=== PATIENT | male | born 1965 | race Caucasian/White ===

== ENCOUNTER 2017-04-29 23:45 | Emergency (ER) | payer SELFPAY ==
[~2017-04-29] VITALS: Ht 167.6 cm; Wt 96.0 kg
[2017-04-30] MEDS ORDERED: SODIUM CHLORIDE 0.9% 1,000 ML IV ONE (06:52)
[2017-04-30] MEDS ORDERED: ONDANSETRON HCL 4MG/2ML VIAL IV STA (06:52)
[2017-04-30] MEDS ORDERED: KETOROLAC 30MG/ML VIAL IV STA (06:52)
[2017-04-30 07:38] LABS: BASOPHILS % 0.9 % (0.0-2.0); EOSINOPHILS % 4.3 % (0.0-5.0); HEMATOCRIT. 42.3 % (42.0-52.0); HEMOGLOBIN. 14.3 g/dL (14.0-18.0); LYMPHOCYTES % 39.9 % (20.0-50.0); MEAN CORPUSCULAR HEMOGLOBIN 31.1 pg (28.0-32.0); MEAN CORPUSCULAR VOLUME 92.3 fL (80.0-94.0); MEAN PLATELET VOLUME 9.4 fl (7.4-10.4); MONOCYTES % 7.5 % (2.0-8.0); NEUTROPHILS % 47.4 % (40.0-76.0); PLATELET 185 x1000/uL (130-400); RED BLOOD CELL COUNT 4.58 mill/uL (4.7-6.1)
[2017-04-30 07:42] LABS: CLARITY URINE CLEAR (CLEAR); COLOR URINE YELLOW (YELLOW); KETONES URINE NEGATIVE (NEGATIVE); LEUKOCYTE ESTERASE URINE NEGATIVE (NEGATIVE); NITRITE URINE NEGATIVE (NEGATIVE); OCCULT BLOOD URINE NEGATIVE (NEGATIVE); PH URINE 5.5 (4.5-8.0); PROTEIN URINE NEGATIVE (NEGATIVE); UROBILINOGEN URINE 0.2 E.U./dL (0.2-1.0)
[2017-04-30 07:46] LABS: CHLORIDE 108 mEq/L (98-107); ETHANOL BLOOD < 10 mg/dL
[2017-04-30 10:28] VITALS: BP 114/78
== END 2017-04-30 11:00 | disposition home or self-care (01) ==
LOC: ER 23:45
DX: K59.00 Constipation, unspecified (principal); Z98.1 Arthrodesis status
CPT/HCPCS: 36415; 80053; 81003; 83690; 85025; 96361; 96374; 96375; 99284; G0482; J1885; J2405; J7030; Z7610

== ENCOUNTER 2017-12-27 15:24 | Inpatient (IN) | payer SELFPAY ==
[~2017-12-27] VITALS: Ht 175.3 cm; Wt 94.3 kg
[2017-12-27] MEDS ORDERED: ONDANSETRON HCL 4MG/2ML INJ IV STA (16:16)
[2017-12-27] MEDS ORDERED: SODIUM CHLORIDE 0.9% 1,000 ML IV ONE (16:16)
[2017-12-27] MEDS ORDERED: PANTOPRAZOLE SODIUM 40 MG/VIAL IV ONE (16:30)
[2017-12-27 16:58] LABS: EOSINOPHILS % 3.7 % (0.0-5.0); HEMOGLOBIN. 14.5 g/dL (14.0-18.0); LYMPHOCYTES % 40.3 % (20.0-50.0); MEAN CORPUSCULAR HEMOGLOBIN 31.7 pg (28.0-32.0); MEAN CORPUSCULAR VOLUME 91.9 fL (80.0-94.0); MEAN PLATELET VOLUME 9.2 fl (7.4-10.4); PLATELET 189 x1000/uL (130-400); RED BLOOD CELL COUNT 4.57 mill/uL (4.7-6.1); RED CELL DISTRIBUTION WIDTH 13.4 % (11.6-14.6)
[2017-12-27 17:03] LABS: PARTIAL THROMBOPLASTIN TIME 26.8 sec (23.4-31.0); PROTHROMBIN TIME 10.3 sec (9.1-11.1)
[2017-12-27 17:06] LABS: CHLORIDE 108 mEq/L (98-107)
[2017-12-27 17:11] LABS: BG BASE EXCESS 1.8 mmol/L (-2.0-2.0); BG CARBOXYHEMOGLOBIN 0.6 % (0.5-1.5); BG DEOXYHEMOGLOBIN 2.5 % (0.0-5.0); BG FRACTION INSPIRED OXYGEN 21; BG HCO3 ACT 25.8 mmol/L (22.0-26.0); BG METHEMOGLOBIN 0.4 % (0.0-1.5); BG OXYGEN SATURATION 97.5 % (92.0-98.5); BG OXYHEMOGLOBIN 96.5 % (94.0-97.0); BG PCO2 38.3 mmHg (35.0-45.0); BG PH 7.446 (7.350-7.450); BG PO2 97.9 mmHg (75.0-100.0); BG SAMPLE SITE RIGHT BRACHIAL; BG TOTAL HEMOGLOBIN 15.1 g/dL (12.0-18.0); BG VENT MODE ROOM AIR
[2017-12-27 17:13] LABS: ETHANOL BLOOD < 10 mg/dL; TOTAL IRON BINDING CAPACITY 285 ug/dL (250-450)
[2017-12-27] MEDS ORDERED: MORPHINE SULFATE 4 MG/ML CPJ (NOT FOR IM USE) IV ONE (17:15)
[2017-12-27 22:00] VITALS: BP 141/78
[2017-12-27] MEDS ORDERED: INFLUENZA VIRUS VACCINE(AFLURIA) 0.5ML SYR IM ONE (22:15)
[2017-12-27] MEDS ORDERED: ZOLP10TA2 MT (22:48)
[2017-12-27] MEDS ORDERED: OMEP20CA10 MT (22:49)
[2017-12-27] MEDS ORDERED: HYDR-4001 MT (22:51)
[2017-12-27 22:52] VITALS: BP 141/78
[2017-12-28] VITALS: BP 109/71
[2017-12-28] MEDS ORDERED: ZOLPIDEM TARTRATE 5MG TABLET PO PRN (02:30)
[2017-12-28] MEDS ORDERED: ACETAMINOPHEN 325MG TABLET PO PRN (02:30)
[2017-12-28] MEDS ORDERED: HYDROCODONE/ACETAMINOPHEN 5/325MG TABLET PO PRN (02:30)
[2017-12-28 04:00] VITALS: BP_SYST 108; BP_SYST 127; BP_DIAS 84
[2017-12-28] MEDS: SODIUM CHL 0.45% + KCL 20MEQ/L 1,000 ML IV SCH (04:47)
[2017-12-28 06:04] LABS: BASOPHILS % 0.9 % (0.0-2.0); EOSINOPHILS % 4.3 % (0.0-5.0); HEMATOCRIT. 41.6 % (42.0-52.0); HEMOGLOBIN. 14.2 g/dL (14.0-18.0); LYMPHOCYTES % 42.4 % (20.0-50.0); MEAN CORPUSCULAR HEMOGLOBIN 31.8 pg (28.0-32.0); MEAN CORPUSCULAR VOLUME 93.3 fL (80.0-94.0); MEAN PLATELET VOLUME 9.7 fl (7.4-10.4); NEUTROPHILS % 45.4 % (40.0-76.0); PLATELET 174 x1000/uL (130-400); RED BLOOD CELL COUNT 4.46 mill/uL (4.7-6.1); RED CELL DISTRIBUTION WIDTH 13.1 % (11.6-14.6)
[2017-12-28 06:28] LABS: CHLORIDE 109 mEq/L (98-107)
[2017-12-28 06:36] LABS: TOTAL IRON BINDING CAPACITY 304 ug/dL (250-450)
[2017-12-28] MEDS ORDERED: PANTOPRAZOLE SODIUM 40 MG/VIAL IV SCH (09:00)
[2017-12-28] MEDS ORDERED: DOCUSATE SODIUM 250MG CAPSULE PO SCH (09:00)
[2017-12-28 20:00] VITALS: BP 160/89
[2017-12-28 22:23] LABS: *AMPHETAMINES SCREEN URINE NEGATIVE (NEGATIVE); *BARBITURATES SCREEN URINE NEGATIVE (NEGATIVE); *BENZODIAZEPINES SCREEN URINE NEGATIVE (NEGATIVE)
[2017-12-28 22:24] LABS: *COCAINE SCREEN URINE NEGATIVE (NEGATIVE); CANNABINOID URINE SCREEN NEGATIVE (NEGATIVE); METHADONE URINE SCREEN NEGATIVE (NEGATIVE); OPIATES URINE SCREEN PRESUMTIVE POSITIVE (NEGATIVE); PHENCYCLIDINE URINE SCREEN NEGATIVE (NEGATIVE)
[2017-12-29] VITALS: BP 107/63
[2017-12-29] MEDS: SODIUM CHL 0.45% + KCL 20MEQ/L 1,000 ML IV SCH (03:14)
[2017-12-29 04:00] VITALS: BP 118/75
[2017-12-29 07:13] LABS: BASOPHILS % 0.7 % (0.0-2.0); EOSINOPHILS % 3.6 % (0.0-5.0); HEMATOCRIT. 44.5 % (42.0-52.0); HEMOGLOBIN. 15.1 g/dL (14.0-18.0); MEAN CORPUSCULAR HEMOGLOBIN 31.6 pg (28.0-32.0); MEAN CORPUSCULAR VOLUME 92.9 fL (80.0-94.0); MEAN PLATELET VOLUME 9.5 fl (7.4-10.4); NEUTROPHILS % 53.7 % (40.0-76.0); PLATELET 182 x1000/uL (130-400); RED BLOOD CELL COUNT 4.79 mill/uL (4.7-6.1); RED CELL DISTRIBUTION WIDTH 12.8 % (11.6-14.6)
[2017-12-29 08:00] VITALS: BP 128/77
[2017-12-29 08:05] LABS: CHLORIDE 109 mEq/L (98-107)
[2017-12-29 11:17] VITALS: BP 123/88
[2017-12-29 12:11] LABS: HEPATITIS B SURFACE ANTIGEN NEGATIVE
[2017-12-29 12:39] LABS: HEPATITIS B CORE AB IGM NEGATIVE
[2017-12-29 12:40] LABS: HEPATITIS A AB IGM NEGATIVE (NEGATIVE)
== END 2017-12-29 12:47 | disposition home or self-care (01) | DRG 253 ==
LOC: ER 15:24 → 6EST 17:21 → EDBEDREQ 17:24 → EDBEDREQSVC 17:24 → EDBEDREQTM 17:24 → ENRESERV 21:06
PROVIDERS: ADMIT Internal Medicine Geriatric Medicine; ATTEND Internal Medicine Geriatric Medicine
DX: K62.5 Hemorrhage of anus and rectum (principal); G89.29 Other chronic pain; I10 Essential (primary) hypertension; K59.00 Constipation, unspecified; R74.0 Nonspecific elevation of levels of transaminase and lactic acid dehydrogenase [LDH]; M54.9 Dorsalgia, unspecified; Z79.1 Long term (current) use of non-steroidal anti-inflammatories (NSAID); Z87.11 Personal history of peptic ulcer disease; Z88.6 Allergy status to analgesic agent
CPT/HCPCS: 36415; 36600; 71045; 74176; 76700; 80048; 80305; 82375; 82805; 83540; 83550; 83880; 84484; 85044; 86705; 86709; 86803; 86850; 86900; 87340; 93005; 93970; 96361; 96374; 96375; 99285; C9113; G0482; J2270; J2405; J3480; J7030

== ENCOUNTER 2018-01-27 14:26 | Emergency (ER) | payer SELFPAY ==
[~2018-01-27] VITALS: Ht 170.2 cm; Wt 94.5 kg
[~2018-01-27 14:26] MED LIST: HYDR-4001 MT; OMEP20CA10 MT; ZOLP10TA2 MT
[2018-01-27] MEDS ORDERED: RANITIDINE (14:48)
[2018-01-27] MEDS ORDERED: PANTOPRAZOLE SODIUM 40 MG/VIAL IV STA (16:21)
[2018-01-27] MEDS ORDERED: SODIUM CHLORIDE 0.9% 1,000 ML IV ONE (16:45)
[2018-01-27] MEDS ORDERED: ONDANSETRON HCL 4MG/2ML INJ IV ONE (16:45)
[2018-01-27 17:17] LABS: BASOPHILS % 0.7 % (0.0-2.0); HEMATOCRIT. 44.2 % (42.0-52.0); HEMOGLOBIN. 14.9 g/dL (14.0-18.0); LYMPHOCYTES % 40.2 % (20.0-50.0); MEAN CORPUSCULAR HEMOGLOBIN 31.9 pg (28.0-32.0); MEAN CORPUSCULAR VOLUME 94.3 fL (80.0-94.0); MEAN PLATELET VOLUME 10.1 fl (7.4-10.4); MONOCYTES % 7.1 % (2.0-8.0); PLATELET 185 x1000/uL (130-400); RED BLOOD CELL COUNT 4.68 mill/uL (4.7-6.1); RED CELL DISTRIBUTION WIDTH 13.3 % (11.6-14.6)
[2018-01-27 17:23] LABS: CHLORIDE 107 mEq/L (98-107)
[2018-01-27 17:41] LABS: PROTHROMBIN TIME 10.3 sec (9.1-11.1)
[2018-01-27] MEDS ORDERED: MAGNESIUM/ALUMINUM HYDROXIDE/SIMETHICONE 30ML UDC PO STA (20:40)
[2018-01-27] MEDS ORDERED: ONDANSETRON HCL 4MG/2ML INJ IV STA (20:40)
[2018-01-27] MEDS ORDERED: FENTANYL CITRATE/PF 50MCG/ML 2ML VIAL IV ONE (20:45)
[2018-01-27 21:30] VITALS: BP 119/55
== END 2018-01-27 21:30 | disposition home or self-care (01) ==
LOC: ER 15:44
DX: K29.71 Gastritis, unspecified, with bleeding (principal); K62.5 Hemorrhage of anus and rectum; R19.7 Diarrhea, unspecified; E87.6 Hypokalemia; D64.9 Anemia, unspecified; F17.200 Nicotine dependence, unspecified, uncomplicated; Z79.899 Other long term (current) drug therapy; Z88.8 Allergy status to other drugs, medicaments and biological substances; Z98.890 Other specified postprocedural states
CPT/HCPCS: 36415; 71045; 80053; 83690; 85025; 85610; 86850; 86900; 86901; 96374; 96375; 99284; C9113; J2405; J3010